=== PATIENT | male | born 1945 | race African-American/Black ===

== ENCOUNTER 2023-01-12 15:15 | Emergency (ER) | payer OTHER ==
[2023-01-12 17:24] LABS: Absolute Lymphocytes (CBC) 0.5 K/uL (0.7-4.9); Hematocrit 27.1 % (39.6-49.0); Lymphocytes % 6.7 % (15.3-44.8); MCV 82.9 fL (80-100); MPV 8.6 fL (7.6-11.3); RBC Red Blood Cell Count 3.27 M/uL (4.33-5.43)
--- NOTE | 2023-01-12 17:30 | RAD REPORT ---
EXAM DESCRIPTION: CT - Head Brain Wo Cont - 01/12/2023 5:19 pm CLINICAL HISTORY: sinusitis Headache, drowsiness COMPARISON: No comparisons TECHNIQUE: All CT scans are performed using dose optimization technique as appropriate and may inclu de automated exposure control or mA/KV adjustment according to patient size. FINDINGS: No intracranial hemorrhage, hydrocephalus or extra-axial fluid collection.Mild generalized brain atrophy is present with mild periventricular and deep white matter chronic microvascular ische henok changes.No areas of brain edema or evidence of midline shift. Mild mucosal thickening is present involving the paranasal sinuses. Mild fluid left mastoid air cell. The calvarium is intact. IMPRESSION: No acute intracranial abnormality.
--- NOTE | 2023-01-12 17:35 | RAD REPORT ---
EXAM DESCRIPTION: CT - Chest Abd Pelvis Wo Con - 01/12/2023 5:20 pm CLINICAL HISTORY: Chest and abdomen pain. alex anal abscess;Cough COMPARISON: No comparisons TECHNIQUE: Approximately 100 mL nonionic IV contrast was administered to the patient. All CT scans are performed using dose optimization technique as appropriate and may include automated exposure control or mA/KV adjustment according to patient size. FINDINGS: The lungs are clear.No pleural or pericardial effusion.No intrathoracic adenopathy. The liver, spleen, pancreas, adrenal glands and kidneys are within normal limits. No bowel obstruction, free air, free fluid or abscess. Normal appendix. Mild sigmoid diverticulosis c sergio without diverticulitis. No pathologic lymphadenopathy in the abdomen or pelvis. Moderate lumbar degenerative changes. Perianal soft tissues appear mildly edematous without abscess v isualized. IMPRESSION: No acute process is seen.
[2023-01-12 17:54] LABS: Potassium 5.4 mEq/L (3.5-5.1)
[2023-01-12 17:55] LABS: Albumin 3.3 g/dL (3.4-5.0); Bilirubin Total 0.3 mg/dL (0.2-1.0); Protein, Total 7.3 g/dL (6.4-8.2)
--- NOTE | 2023-01-12 18:20 | EDPHYS ---
Physician Documentation [facility] Name: Chico Underwood Age: 77 yrs Sex: Male : 1945 Arrival Date: 01/12/2023 Time: 15:31 Bed 2 Private MD: ED Physician Adryan Morley HPI: 01/12 16:55 This 77 yrs old Black Male presents to ER via Ambulatory with complaints of Skin snw Sore(s), Breathing Difficulty. 16:55 10 days hx of SOB, alex-anal abscess. [facility]. States abscess snw ruptured today but pt continues to have sinus congestion and some shortness of breath. Onset: The symptoms/episode began/occurred 10 day(s) ago. Severity of symptoms: At their worst the symptoms were moderate. The patient has experienced a previous episode. The patient has been recently seen by a physician: the patient's primary care provider, with similar presenting complaints, was given a prescription for antibiotics. Historical: - Allergies: 16:47 No Known Allergies; vg1 - Home Meds: 16:47 Insulin Glargine Sub-Q [Active]; Hydralazine Oral [Active]; tamsulosin oral [Active]; vg1 atorvastatin oral [Active]; - Immunization history:: Client reports receiving the 2nd dose of the Covid vaccine. - Social history:: Smoking status: Patient denies any tobacco usage or history of. ROS: 16:50 Eyes: Negative for injury, pain, redness, and discharge. snw 16:50 Neck: Negative for injury, pain, and swelling, Cardiovascular: Negative for chest pain, palpitations, and edema. 16:50 Abdomen/GI: Negative for abdominal pain, nausea, vomiting, diarrhea, and constipation, Back: Negative for injury and pain. 16:50 Abdomen/GI: Negative for abdominal pain, nausea, vomiting, diarrhea, and constipation, hx of alex-anal abscess recurrence with recent rupture MS/Extremity: Negative for injury and deformity, Neuro: Negative for headache, weakness, numbness, tingling, and seizure, Psych: Negative for depression, anxiety, suicide ideation, homicidal ideation, and hallucinations. 16:50 Constitutional: Positive for body aches, malaise. 16:50 ENT: Positive for sinus congestion, sinus pain. 16:50 Respiratory: Positive for cough, orthopnea, shortness of breath, at rest. 16:50 : 16:50 Skin: Positive for abscess, ruptured today. Exam: 16:50 Constitutional: This is a well developed, well nourished patient who is awake, alert, snw and in no acute distress. Head/Face: Normocephalic, atraumatic. Eyes: Pupils equal round and reactive to light, extra-ocular motions intact. Lids and lashes normal. Conjunctiva and sclera are non-icteric and not injected. Cornea within normal limits. Periorbital areas with no swelling, redness, or edema. ENT: Nares patent. No nasal discharge, no septal abnormalities noted. Tympanic membranes are normal and external auditory canals are clear. Oropharynx with no redness, swelling, or masses, exudates, or evidence of obstruction, uvula midline. Mucous membranes moist. Neck: Trachea midline, no thyromegaly or masses palpated, and no cervical lymphadenopathy. Supple, full range of motion without nuchal rigidity, or vertebral point tenderness. No Meningismus. Chest/axilla: Normal chest wall appearance and motion. Nontender with no deformity. No lesions are appreciated. Cardiovascular: Regular rate and rhythm with a normal S1 and S2. No gallops, murmurs, or rubs. Normal PMI, no JVD. No pulse deficits. Respiratory: Lungs have equal breath sounds bilaterally, clear to auscultation and percussion. No rales, rhonchi or wheezes noted. No increased work of breathing, no retractions or nasal flaring. Abdomen/GI: Soft, non-tender, with normal bowel sounds. No distension or tympany. No guarding or rebound. No evidence of tenderness throughout. Back: No spinal tenderness. No costovertebral tenderness. Full range of motion. MS/ Extremity: Pulses equal, no cyanosis. Neurovascular intact. Full, normal range of motion. Neuro: Awake and alert, GCS 15, oriented to person, place, time, and situation. Cranial nerves II-XII grossly intact. Motor strength 5/5 in all extremities. Sensory grossly intact. Cerebellar exam normal. Normal gait. Psych: Awake, alert, with orientation to person, place and time. Behavior, mood, and affect are within normal limits. Vital Signs: 16:37 BP 131 / 77; Pulse 70; Resp 18; Temp 98.4(O); Pulse Ox 99% on R/A; Weight 106.14 kg; vg1 Height 6 ft. 2 in. ; Pain 5/10; 16:50 BP 136 / 85; Pulse 106; Pulse Ox 99% on R/A; ap3 19:20 BP 126 / 60; Pulse 95; Resp 18; Pulse Ox 99% ; Pain 0/10; pf1 16:37 Body Mass Index 30.04 (106.14 kg, 187.96 cm) vg1 16:37 Pain Scale: Adult vg1 19:20 Pain Scale: Adult pf1 MDM: 16:04 Patient medically screened. snw 18:08 ED course: Pt states he recently moved here and has not decided whether he will utilize snw dialysis. Pt is on abx for s/s of upper respiratory infection and alex anal infection and [facility]. States the abx he is taking have given him loose stools which will help with the mild hyperkalemia that was noted today. Pt is without chest pain, edema, or complaints. Denies pain at anus/rectum. CT without contrast negative for acute findings. Pt to return to ED immediately for worsening s/s. Will give all results to pt for review and comparison of [facility] 18:25 Differential Diagnosis sepsis, pneumonia. Data reviewed: vital signs, nurses notes, lab snw test result(s), radiologic studies, CT scan. Care significantly affected by the following chronic conditions: Chronic Kidney Disease. Counseling: I had a detailed discussion with the patient and/or guardian regarding: the historical points, exam findings, and any diagnostic results supporting the discharge/admit diagnosis, the presence of at least one elevated blood pressure reading (>120/80) during this emergency department visit, lab results, radiology results, the need for outpatient follow up, for definitive care, to return to the emergency department if symptoms worsen or persist or if there are any questions or concerns that arise at home. 01/12 16:47 Order name: CBC with Diff; Complete Time: 17:26 snw 01/12 16:47 Order name: Blood Culture Adult (2) snw 01/12 16:47 Order name: CMP; Complete Time: 17:59 snw 01/12 16:47 Order name: CT Head Brain wo Cont; Complete Time: 17:31 snw 01/12 16:47 Order name: Chest Abdomen Pelvis Wo Con CT; Complete Time: 17:47 snw Administered Medications: 18:36 Drug: Hibiclens Topical Liquid 4 % 1 application Route: Topical; Site: affected area; ap3 19:31 Follow up: Response: No adverse reaction; Marked relief of symptoms pf1 18:36 Drug: Albuterol Inhalation 2.5 mg Route: Inhalation; ap3 19:32 Follow up: Response: No adverse reaction; Marked relief of symptoms pf1 Disposition Summary: 01/12/23 18:19 Discharge Ordered Location: Home snw Condition: Stable snw Diagnosis - Chronic kidney disease, stage 5 snw - Acute upper respiratory infection, unspecified snw - Other specified disorders of the skin and subcutaneous tissue snw Followup: snw - With: Emergency Department - When: As needed - Reason: Worsening of condition Followup: snw - With: Private Physician - When: 2 - 3 days - Reason: Recheck today's complaints, Continuance of care, Re-evaluation by your physician Discharge Instructions: - Discharge Summary Sheet snw - Cellulitis, Adult snw - Hyperkalemia snw - Upper Respiratory Infection, Adult snw - Food Basics for Chronic Kidney Disease snw - End-Stage Kidney Disease snw - Chronic Kidney Disease, Adult snw Forms: - Medication Reconciliation Form snw - Thank You Letter snw - Antibiotic Education snw - Prescription Opioid Use snw Signatures: Dispatcher [employer] Joy Ortega FNP-C [facility]-Csnw Melisa Michael RN RN ap3 Carlee Hayes RN RN vg1 Ashlie torres RN pf1
--- NOTE | 2023-01-12 18:20 | ER ---
Nurse's Notes [facility] Name: Chico Underwood Age: 77 yrs Sex: Male : 1945 Arrival Date: 01/12/2023 Time: 15:31 Bed 2 Private MD: Diagnosis: Chronic kidney disease, stage 5;Acute upper respiratory infection, unspecified;Other specified disorders of the skin and subcutaneous tissue Presentation: 01/12 16:37 Chief complaint: Patient states: coughing thick white phlegm x 10 days; also stated had vg1 a boil near the perianal area that popped at 0300 in the morning and drained with blood and fluid. Coronavirus screen: Client denies travel out of the [place] in the last 14 days. Ebola Screen: Patient negative for fever greater than or equal to 101.5 degrees Fahrenheit, and additional compatible Ebola Virus Disease symptoms Patient denies exposure to infectious person. Patient denies travel to an Ebola-affected area in the 21 days before illness onset. Initial Sepsis Screen: Does the patient meet any 2 criteria? No. Patient's initial sepsis screen is negative. Does the patient have a suspected source of infection? No. Patient's initial sepsis screen is negative. Risk Assessment: Do you want to hurt yourself or someone else? Patient reports no desire to harm self or others. Onset of symptoms was January 02, 2023. 16:37 Method Of Arrival: Ambulatory vg 16:37 Acuity: MIMI 3 vg1 Triage Assessment: 16:47 General: Appears in no apparent distress. uncomfortable, Behavior is calm, cooperative. vg1 Pain: Complains of pain in body aches Pain currently is 5 out of 10 on a pain scale. Respiratory: Reports cough that is productive, Breath sounds are clear bilaterally. Onset: The symptoms/episode began/occurred x 10 days, the patient has mild shortness of breath. Historical: - Allergies: 16:47 No Known Allergies; vg1 - Home Meds: 16:47 Insulin Glargine Sub-Q [Active]; Hydralazine Oral [Active]; tamsulosin oral [Active]; vg1 atorvastatin oral [Active]; - Immunization history:: Client reports receiving the 2nd dose of the Covid vaccine. - Social history:: Smoking status: Patient denies any tobacco usage or history of. Screenin:22 [facility] ED Fall Risk Assessment (Adult) History of falling in the last 3 months, ap3 including since admission No falls in past 3 months (0 pts). Abuse screen: Denies threats or abuse. Nutritional screening: No deficits noted. Tuberculosis screening: No symptoms or risk factors identified. Assessment: 19:22 Cardiovascular: Patient's skin is warm and dry. Rhythm is regular. Respiratory: Airway ap3 is patent Respiratory effort is even, unlabored. Vital Signs: 16:37 BP 131 / 77; Pulse 70; Resp 18; Temp 98.4(O); Pulse Ox 99% on R/A; Weight 106.14 kg; vg1 Height 6 ft. 2 in. ; Pain 5/10; 16:50 BP 136 / 85; Pulse 106; Pulse Ox 99% on R/A; ap3 19:20 BP 126 / 60; Pulse 95; Resp 18; Pulse Ox 99% ; Pain 0/10; pf1 16:37 Body Mass Index 30.04 (106.14 kg, 187.96 cm) vg1 16:37 Pain Scale: Adult vg1 19:20 Pain Scale: Adult pf1 ED Course: 15:31 Patient arrived in ED. mr 15:49 Joy Feldman, [facility] snw 15:49 Adryan Morley MD is Attending Physician. snw 16:46 Triage completed. vg1 16:47 Arm band placed on. vg1 17:14 CMP Sent. zm 17:14 Blood Culture Adult (2) Sent. zm 17:14 CBC with Diff Sent. zm 17:14 Inserted saline lock: 20 gauge in left antecubital area, using aseptic technique. Blood zm collected. 17:21 CT Head Brain wo Cont In Process Unspecified. EDMS 17:22 Chest Abdomen Pelvis Wo Con CT In Process Unspecified. EDMS 17:48 Melisa Michael, RN is Primary Nurse. ap3 19:23 No provider procedures requiring assistance completed. IV discontinued, intact, ap3 bleeding controlled, No redness/swelling at site. Pressure dressing applied. 19:24 Patient has correct armband on for positive identification. Bed in low position. Call ap3 light in reach. Side rails up X 1. Adult w/ patient. Administered Medications: 18:36 Drug: Hibiclens Topical Liquid 4 % 1 application Route: Topical; Site: affected area; ap3 19:31 Follow up: Response: No adverse reaction; Marked relief of symptoms pf1 18:36 Drug: Albuterol Inhalation 2.5 mg Route: Inhalation; ap3 19:32 Follow up: Response: No adverse reaction; Marked relief of symptoms pf1 Medication: 19:22 VIS not applicable for this client. ap3 Outcome: 18:19 Discharge ordered by MD. yin 19:23 Discharged to home ambulatory, with family. ap3 19:23 Condition: good 19:23 Discharge instructions given to patient, family, Instructed on discharge instructions, follow up and referral plans. Demonstrated understanding of instructions, follow-up care, medications, Prescriptions given X 19:32 Patient left the ED. pf1 Signatures: Dispatcher [employer] EDMS Joy Feldman, LAB RN-C LAB RN-Robinw Geri Koo Melisa Piper, RN RN ap3 Carlee Hayes RN RN vg1 Katty Ulloa Pamala, RN RN pf1
[2023-01-12] MEDS ORDERED: ALBUTEROL INHALER 60 PUFF/8 GM IH ONE (18:25)
[2023-01-12 19:52] VITALS: TEMP 98.4; O2SAT 99
[2023-01-12 20:02] VITALS: BP 136/85
== END 2023-01-12 19:32 | disposition home or self-care (01) ==
LOC: ER 15:15
DX: J06.9 Acute upper respiratory infection, unspecified (principal); L98.8 Other specified disorders of the skin and subcutaneous tissue; N18.5 Chronic kidney disease, stage 5
CPT/HCPCS: 36415; 70450; 71250; 74176; 80053; 85025; 87040; 99284

== ENCOUNTER → 2023-11-22 | Emergency (ER) | payer OTHER ==
[~2023-11-22] MED LIST: CEFTRIAXONE 1000 MG/VIAL ONE; HYDROCODONE/APAP 7.5/325 MG TAB ONE; IBUPROFEN 400 MG TAB ONE; METRONIDAZOLE 500mg IVPB 500 MG/100 ML BAG IV ONE
--- OUTSIDE RECORDS SUMMARY | 2023-11-22 18:39 | XMS REPORT | Continuity of Care Document ---
Author Name Unknown Address [address] [place] [address] [facility] thconnect Address 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 Name Role Phone [facility] Primary Car e Physician Unavailable PETE MORALES Attending Clinician Unavailable Doctor Unassigned, [place] Attending Clinician U navailable PETE MORALES Admitting Clinician Unavailable Payers Payer Name Policy Type Policy Number Effective Date Expirati on Date Source [facility] [id number] 2023 00:00:00 Allergies, Adverse Reactions, Alerts Allergy Name Allergy Type Status Severity Reaction(s) Onset Date Inactive Date Treating Clinician Comments Source NO KNOWN ALLERGIE S Drug Class Active [facility] Social History Social Habit Start Date Stop Date Quantity Comments Source Exposure to SARS-CoV-2 (event) 2023-02-01 00:00:00 2023-02-11 16:31:[address] [facility] Sex Ass[birth year] At 1945 00:00:00 1945 00:00:[address] [facility] Smoking Status Start Date Stop Date Source Tobacco smoking consumption unknown [facility] Procedures Procedure Date / Time Performed Performing Clinicia n Source ASSIGNMENT OF BENEFITS 2023-02-11 21:32:17 Docto r Unassigned, [place] [facility] Encounters Start Date/Time End Date/Time Encounter Type Admission Type Attending Clinicians Care Facility Care Department Encounter ID Source 2023-02-16 12:44:07 Outpatient R PETE MORALES [facility] [id number] [facility] 2023-02-11 16:15:00 2023-02-12 11:25:03 Outpatient PETE [facility]ENSEN [facility] [id number] [facility] 2023-02-11 00:00:00 2023-02-11 00:00:00 Orders Only Doctor Unassigned, [place] [facility] [id number] [facility]
--- NOTE | 2023-11-22 22:30 | RAD REPORT ---
EXAM DESCRIPTION: US - Scrotum Testicles - 11/22/2023 8:34 pm CLINICAL HISTORY: tenderness;Swelling COMPARISON: No comparisons TECHNIQUE: Sonographic grayscale and color flow images of the scrotum were obtained. FINDINGS: The right testicle measures 3.3 x 1.9 x 2.0 cm. No intratesticular masses, however small e chogenic focus is seen within the right testicular parenchyma measuring up to 2 mm, nonspecific. No e vidence of testicular torsion. The left testicle measures 3.4 x 1.8 x 2.5 cm. No intratesticular masses or evidence of testicular to rsion. Both epididymides are normal in size and appearance. No pathologic fluid collections. Soft tissue swelling along the posterior right scrotum. Heterogeneous hypoechoic fluid collection kassy sures 1.4 x 1.2 x 0.6 cm, with surrounding hyperemia. IMPRESSION: Soft tissue swelling and heterogeneous fluid collection in the right posterior scrotum, measuring up to 1.4 cm, suggesting a cellulitis and phlegmon or early abscess formation. No evidence of testicular torsion. Nonspecific small echogenic 2 mm focus within the right testicular parenchyma, may relate to focal ea rly mineralization.
--- NOTE | 2023-11-22 23:40 | EDPHYS ---
Physician Documentation [facility] Name: Chico Underwood Jr Age: 77 yrs Sex: Male : 1945 Arrival Date: 11/22/2023 Time: 18:35 Bed 9 Private MD: ED Physician Amos Schafer HPI: 11/22 19:30 This 77 yrs old Black Male presents to ER via Ambulatory with complaints of Cyst - In cp groin area. 19:30 The patient presents with scrotal pain, of the right side, tenderness, that is cp moderate, of the right testicle. 19:30 Onset: The symptoms/episode began/occurred 1 week(s) ago. cp 19:30 Associated signs and symptoms: Pertinent negatives: abdominal pain, dysuria, fever, cp vomiting. Patient reports being diagnosed with scrotal cyst/abscess in the past with flare-up about every several months. Has had are drained before and spontaneous rupture before also. Usually prescribed antibiotics that help. Historical: - Allergies: 18:46 No Known Allergies; tl4 - Home Meds: 18:46 Insulin Glargine Sub-Q [Active]; tamsulosin 0.4 mg oral capsule 1 cap [Active]; tl4 atorvastatin oral [Active]; Hydralazine Oral [Active]; - PMHx: 18:46 Hypertensive disorder; Diabetes mellitus; tl4 - Immunization history:: Adult Immunizations unknown. - Social history:: Smoking status: Patient denies any tobacco usage or history of. ROS: 19:35 Cardiovascular: Negative for chest pain, cp 19:35 Eyes: Negative for injury, pain, redness, and discharge, cp 19:35 Constitutional: Negative for body aches, chills, fever, poor PO intake, 19:35 Respiratory: Negative for cough, shortness of breath, wheezing, 19:35 Abdomen/GI: Negative for abdominal pain, 19:35 Back: Negative for pain at rest, pain with movement, 19:35 : Positive for testicular pain of the scrotum and right testicle, Negative for urinary symptoms, 19:35 All other systems are negative, Exam: 19:40 Constitutional: The patient appears in no acute distress, alert, awake, non-toxic, well cp developed, well nourished, 19:40 Head/Face: Normocephalic, atraumatic. cp 19:40 Eyes: Periorbital structures: appear normal, Conjunctiva: normal, no exudate, no injection, Sclera: no appreciated abnormality, Lids and lashes: appear normal, bilaterally, 19:40 ENT: External ear(s): are unremarkable, Nose: is normal, Mouth: Lips: moist, Oral mucosa: pink and intact, moist, Posterior pharynx: is normal, airway is patent, no erythema, no exudate, 19:40 Chest/axilla: Inspection: normal, 19:40 Cardiovascular: Rate: bradycardic, 19:40 Respiratory: the patient does not display signs of respiratory distress, Respirations: normal, no use of accessory muscles, no retractions, labored breathing, is not present, Breath sounds: are clear throughout, no decreased breath sounds, no stridor, no wheezing, 19:40 Abdomen/GI: Inspection: abdomen appears normal, Palpation: abdomen is soft and non-tender, in all quadrants, 19:40 : Male external genitalia: swelling, of the right testicle is noted, that is mild, tenderness, of the right testicle is noted, that is mild, 19:40 Skin: cellulitis, is not appreciated, no rash present. Vital Signs: 18:49 BP 150 / 87; Pulse 51; Resp 18; Temp 98.5(O); Pulse Ox 100% on R/A; Weight 102.06 kg; tl4 Height 6 ft. 1 in. ; Pain 8/10; 11/23 01:13 BP 148 / 80; Pulse 55; Resp 18; Pulse Ox 100% ; vc1 11/22 18:49 Body Mass Index 29.68 (102.06 kg, 185.42 cm) tl4 11/22 18:49 Pain Scale: Adult tl4 MDM: 11/22 18:54 Patient medically screened. cp 23:38 Data reviewed: vital signs, nurses notes, radiologic studies, ultrasound. cp 23:38 Differential diagnosis: UTI, prostatitis, urethritis, abscess, cellulitis, Sanjana's cp Gangrene. I considered the following discharge prescriptions or medication management in the emergency department Medications were administered in the Emergency Department. See MAR. Care significantly affected by the following chronic conditions: Diabetes, Hypertension. Counseling: I had a detailed discussion with the patient and/or guardian regarding the historical points, exam findings, and any diagnostic results supporting the discharge/admit diagnosis, radiology results, the need for outpatient follow up, a urologist, to return to the emergency department if symptoms worsen or persist or if there are any questions or concerns that arise at home. Response to treatment: the patient's symptoms have mildly improved after treatment, and as a result, I will discharge patient. 11/22 19:48 Order name: US Scrotum Testicles; Complete Time: 22:53 cp 11/22 23:10 Order name: IV; Complete Time: 00:16 cp Administered Medications: 19:59 Drug: Hydrocodone-Acetaminophen PO (7.5 mg-325 mg) 1 tabs PO once; RASS on ADMIN: nj1 Combtv4, Very Agttd3, Agttd2, Rstlss1, AlertClm0, Drwsy-1, Lt Sdtn-2, Mod Sdtn-3, Dp Sdtn-4, UnArsble-5 Route: PO; 19:59 Drug: Ibuprofen PO 800 mg PO once Route: PO; nj 11/23 00:15 Drug: metroNIDAZOLE IVPB 500 mg 100 ml IVPB once over 30 mins Volume: 100 ml; Route: vc1 IVPB; Infused Over: 30 mins; Site: right hand; 00:16 Drug: Rocephin IV 1 grams IV at calculated rate once; Given slow IV push per pharmacy vc1 instructions Route: IV; Rate: calculated rate; Site: right hand; Disposition Summary: 11/22/23 23:39 Discharge Ordered Notes: Location: Home cp Problem: new cp Symptoms: have improved cp Condition: Stable cp Diagnosis - Scrotal Abscess cp Followup: cp - With: Dionte Gaines MD - When: 2 - 3 days - Reason: Recheck today's complaints Discharge Instructions: - Discharge Summary Sheet cp - Skin Abscess cp Forms: - Medication Reconciliation Form cp - Thank You Letter cp - Antibiotic Education cp - Prescription Opioid Use cp - Patient Portal Instructions cp - Leadership Thank You Letter cp Prescriptions: - Cephalexin 500 mg Oral Capsule - take 1 capsule ORAL route every 6 hours for 10 days; 40 capsule; Refills: 0, cp Product Selection Permitted - Metronidazole 500 mg Oral Tablet - take 1 tablet ORAL route every 8 hours; 30 tablet; Refills: 0, Product cp Selection Permitted Signatures: Dispatcher [facility] Cardenas PA PA cp Calcote, Vanessa, RN RN vc1 Peggy Carlos RN RN nj1 Franco, Ari 4
--- NOTE | 2023-11-22 23:40 | ER ---
Nurse's Notes [facility] Name: Chico Underwood Jr Age: 77 yrs Sex: Male : 1945 Arrival Date: 11/22/2023 Time: 18:35 Bed 9 Private MD: Diagnosis: Scrotal Abscess Presentation: 11/22 18:49 Chief complaint: Patient states: Pt c/o cyst under his scrotum that is getting worse x tl4 1 week. Pt has history of same that reoccurs approx every 6 months. Pt denies fever/chills. Coronavirus screen: Vaccine status: Patient reports being unvaccinated. Ebola Screen: Patient negative for fever greater than or equal to 101.5 degrees Fahrenheit, and additional compatible Ebola Virus Disease symptoms Patient denies exposure to infectious person. Patient denies travel to an Ebola-affected area in the 21 days before illness onset. No symptoms or risks identified at this time. Initial Sepsis Screen: Does the patient meet any 2 criteria? No. Patient's initial sepsis screen is negative. Does the patient have a suspected source of infection? No. Patient's initial sepsis screen is negative. Risk Assessment: Do you want to hurt yourself or someone else? Patient reports no desire to harm self or others. Onset of symptoms was November 15, 2023. 18:49 Method Of Arrival: Ambulatory tl4 18:49 Acuity: MIMI 3 tl4 Triage Assessment: 18:52 General: Appears uncomfortable, Behavior is calm, cooperative. Pain: Complains of pain tl4 in scrotum. EENT: No deficits noted. No signs and/or symptoms were reported regarding the EENT system. Neuro: No deficits noted. Cardiovascular: No deficits noted. Respiratory: No deficits noted. GI: No deficits noted. No signs and/or symptoms were reported involving the gastrointestinal system. : No deficits noted. No signs and/or symptoms were reported regarding the genitourinary system. Historical: - Allergies: 18:46 No Known Allergies; tl4 - Home Meds: 18:46 Insulin Glargine Sub-Q [Active]; tamsulosin 0.4 mg oral capsule 1 cap [Active]; tl4 atorvastatin oral [Active]; Hydralazine Oral [Active]; - PMHx: 18:46 Hypertensive disorder; Diabetes mellitus; tl4 - Immunization history:: Adult Immunizations unknown. - Social history:: Smoking status: Patient denies any tobacco usage or history of. Screenin:00 [facility] ED Fall Risk Assessment (Adult) Score/Fall Risk Level 0 - 2 = Low Risk nj Oriented to surroundings, Maintained a safe environment, Hourly rounding (assess needs \T\ fall precautionary measures) done. 20:00 Abuse screen: Denies threats or abuse. Denies injuries from another. Nutritional nj1 screening: No deficits noted. Tuberculosis screening: No symptoms or risk factors identified. Assessment: 19:59 Reassessment: See triage assessment. nj1 19:59 Pain: Complains of pain in scrotum Pain currently is 7 out of 10 on a pain scale. hi1 11/23 01:13 Reassessment: Patient and/or family updated on plan of care and expected duration. Pain vc1 level reassessed. Patient is alert, oriented x 3, equal unlabored respirations, skin warm/dry/pink. Patient states symptoms have improved. Vital Signs: 11/22 18:49 BP 150 / 87; Pulse 51; Resp 18; Temp 98.5(O); Pulse Ox 100% on R/A; Weight 102.06 kg; tl4 Height 6 ft. 1 in. ; Pain 8/10; 11/23 01:13 BP 148 / 80; Pulse 55; Resp 18; Pulse Ox 100% ; vc1 11/22 18:49 Body Mass Index 29.68 (102.06 kg, 185.42 cm) tl4 11/22 18:49 Pain Scale: Adult tl4 ED Course: 11/22 18:40 Patient arrived in ED. im 18:47 Spenser Downing PA is PHCP. cp 18:47 Amos Schafer DO is Attending Physician. cp 18:52 Triage completed. tl4 18:53 Arm band placed on Patient placed in an exam room, on a stretcher. tl4 19:53 Peggy Carlos, VARUN is Primary Nurse. nj1 20:00 Patient has correct armband on for positive identification. Bed in low position. Call nj1 light in reach. Adult w/ patient. Provided Education on: call light, fall precautions. 20:35 US Scrotum Testicles In Process Unspecified. EDMS 23:38 Dionte Gaines MD is Referral Physician. cp 11/23 00:03 Inserted saline lock: 22 gauge in right hand, using aseptic technique. kmf 01:13 No provider procedures requiring assistance completed. IV discontinued. vc1 Administered Medications: 11/22 19:59 Drug: Hydrocodone-Acetaminophen PO (7.5 mg-325 mg) 1 tabs PO once; RASS on ADMIN: nj1 Combtv4, Very Agttd3, Agttd2, Rstlss1, AlertClm0, Drwsy-1, Lt Sdtn-2, Mod Sdtn-3, Dp Sdtn-4, UnArsble-5 Route: PO; 19:59 Drug: Ibuprofen PO 800 mg PO once Route: PO; nj 11/23 00:15 Drug: metroNIDAZOLE IVPB 500 mg 100 ml IVPB once over 30 mins Volume: 100 ml; Route: vc1 IVPB; Infused Over: 30 mins; Site: right hand; 00:16 Drug: Rocephin IV 1 grams IV at calculated rate once; Given slow IV push per pharmacy vc1 instructions Route: IV; Rate: calculated rate; Site: right hand; Medication: 01:13 VIS not applicable for this client. vc1 Outcome: 11/22 23:39 Discharge ordered by . denis 11/23 01:13 Discharged to home ambulatory, vc1 Condition: good Discharge instructions given to patient, Instructed on discharge instructions, follow up and referral plans. medication usage, Demonstrated understanding of instructions, follow-up care, medications, Prescriptions given X 2, 01:14 Patient left the ED. vc1 Signatures: Dispatcher [employer] EDWY Spenser Downing PA PA cp Calcote, Vanessa, RN RN vc1 Peggy Carlos RN RN nj1 Vicky Akhtar Kelsey Maroul kmf Logdajayshree, Ari tl4
[2023-11-23 06:14] VITALS: BP 148/80; TEMP 98.5; O2SAT 100
== END ==
LOC: ER 18:35
DX: N49.2 Inflammatory disorders of scrotum (principal); E11.9 Type 2 diabetes mellitus without complications; Z79.4 Long term (current) use of insulin; I10 Essential (primary) hypertension
CPT/HCPCS: 76870